=== PATIENT | male | born 1995 | race Caucasian/White ===

== ENCOUNTER 2021-03-22 15:54 | Emergency (ER) | payer OTHER ==
[2021-03-22] MEDS ORDERED: Ketorolac 60 MG/2 ML SDV IM ONE (16:26)
[2021-03-22 16:27] LABS: CHLORIDE,CL 103 mEq/L (98-106); SODIUM,NA 139 mEq/L (136-145)
[2021-03-22] MEDS ORDERED: Potassium Chloride 10 MEQ Tab.ER PO ONE (16:58)
--- NOTE | 2021-03-22 17:02 | EDM.PDOC ---
ED HPI GENERAL MEDICAL PROBLEM - General Chief Complaint: General Stated Complaint: chestpain Time Seen by Provider: 03/22/21 16:10 Source of Information: Reports: Patient History Limitations: Reports: No Limitations - History of Present Illness Onset: Unknown/Unsure Onset Date: 03/21/21 Duration: Intermittent Location: Reports: Chest (Left sided chest magdaleno is reproducible on palpation.) Quality: Reports: Ache Severity: Mild Improves with: Reports: None Worsens with: Reports: None Context: Reports: Activity, Other (snow shoveling) Associated Symptoms: Reports: No Other Symptoms Treatments [employer]: Reports: Other (see below) (none) ribs Pain Score (Numeric/FACES): 4 - Related Data Allergies Allergy/AdvReac Type Severity Reaction Status Date / Time No Known Allergies Allergy Verified 03/22/21 16:12 Home Meds: Home Meds . [No Known Home Meds] 03/22/21 [History] Past Medical History - Past Health History Medical/Surgical History: Denies Medical/Surgical History Social & Family History - Tobacco Use Tobacco Use Status *Q: Current Every Day Tobacco User Years of Tobacco use: 5 Packs/Tins Daily: 1 - Caffeine Use Caffeine Use: Reports: Soda - Recreational Drug Use Recreational Drug Use: No ED ROS GENERAL - Review of Systems Review Of Systems: See Below Constitutional: Reports: No Symptoms HEENT: Reports: No Symptoms Respiratory: Reports: No Symptoms Cardiovascular: Reports: Chest Pain Endocrine: Reports: No Symptoms GI/Abdominal: Reports: No Symptoms : Reports: No Symptoms Musculoskeletal: Reports: Other (left chest pain) Skin: Reports: No Symptoms Neurological: Reports: No Symptoms Psychiatric: Reports: No Symptoms Hematologic/Lymphatic: Reports: No Symptoms Immunologic: Reports: No Symptoms ED EXAM, GENERAL - Physical Exam Exam: See Below Exam Limited By: No Limitations General Appearance: Alert, No Apparent Distress Eye Exam: Bilateral Eye: Normal Inspection Ears: Normal External Exam Nose: Normal Inspection, Normal Mucosa, No Blood Throat/Mouth: Normal Inspection, Normal Lips, Normal Teeth, Normal Gums, Normal Oropharynx, Normal Voice, No Airway Compromise Head: Atraumatic, Normocephalic Neck: Normal Inspection, Supple, Non-Tender, Full Range of Motion Respiratory/Chest: No Respiratory Distress, Lungs Clear, Normal Breath Sounds, No Accessory Muscle Use, Chest Non-Tender, Other (pain reproducible on palpation of left ribs just under pectoral areas) Cardiovascular: Normal Peripheral Pulses, Regular Rate, Rhythm, No Edema GI/Abdominal: Normal Bowel Sounds, Soft, Non-Tender, No Distention Back Exam: Normal Inspection, Full Range of Motion Extremities: Normal Inspection, Normal Range of Motion, Non-Tender, Normal Capillary Refill Neurological: Alert, Oriented, Normal Cognition, Normal Gait, No Motor/Sensory Deficits Psychiatric: Normal Affect, Normal Mood Skin Exam: Warm, Dry, Intact, Normal Color, No Rash #1 Interpretation EKG Date: 03/22/21 Rhythm: NSR (sinus arrhythmia) Course - Vital Signs Last Recorded V/S: Last Vital Signs Temp 97.5 F 03/22/21 15:54 Pulse 74 03/22/21 15:54 Resp 16 03/22/21 15:54 BP 140/87 03/22/21 15:54 Pulse Ox 96 03/22/21 15:54 - Orders/Labs/Meds Orders: Active Orders 24 hr Category Date Time Status Telemetry Monitoring [Cardiac Monitoring] [RC] . Care 03/22/21 16:05 Active DIRECTED Labs: Laboratory Tests 03/22/21 03/22/21 03/22/21 Range/Units 16:10 16:10 16:10 WBC 6.7 (4.0-11.0) 10^3/uL RBC 5.63 (4.50-6.00) x10^6/uL Hgb 16.2 (14.0-18.0) g/dL Hct 46.5 (42.0-52.0) % MCV 82.6 L (83.0-97.0) fL MCH 28.8 (27.0-32.0) pg MCHC 34.8 (32.0-36.0) g/dL RDW Coeff of Eliceo 12.0 (11.0-15.0) % Plt Count 173 (150-400) 10^3/uL Immature Gran % (Auto) 0.3 (0.0-4.9) % Neut % (Auto) 60.6 (41-71) % Lymph % (Auto) 23.8 L (24-44) % [place] % (Auto) 11.5 H (0-10) % Eos % (Auto) 3.1 (0-6) % Baso % (Auto) 0.7 (0-1) % Neut # (Auto) 4.04 (1.80-8.00) x10^3/uL Lymph # (Auto) 1.59 (0.60-5.00) 10^3/uL [place] # (Auto) 0.77 (0.00-1.50) 10^3/uL Eos # (Auto) 0.21 (0.00-1.50) 10^3/uL Baso # (Auto) 0.05 (0.00-0.50) 10^3/uL Immature Gran # (Auto) 0.02 (0.00-0.49) 10^3/uL PT 11.7 (9.7-12.3) SEC INR 1.08 (0.92-1.18) Sodium 139 (136-145) mEq/L Potassium 3.3 L (3.5-5.0) mEq/L Chloride 103 (98-106) mEq/L Carbon Dioxide 27 (21-32) mmol/L BUN 11 (7-18) mg/dL Creatinine 1.2 (0.7-1.3) mg/dL Est Cr Clr Drug Dosing 107.51 mL/min Estimated GFR (MDRD) > 60 (>=60) mL/min Glucose 88 (75-99) mg/dL Calcium 8.9 (8.4-10.1) mg/dL Magnesium 1.9 (1.8-2.4) mg/dL Total Bilirubin 0.6 (0.0-1.0) mg/dL AST 31 (15-37) U/L ALT 70 (12-78) U/L Alkaline Phosphatase 68 (46-116) U/L Lactate Dehydrogenase 159 (100-190) U/L Creatine Kinase 136 (35-232) U/L Troponin I High Sens 4.7 (<=76) pg/mL Total Protein 7.9 (6.4-8.2) g/dL Albumin 4.5 (3.4-5.0) g/dL Lipase 104 (73-393) U/L Meds: Medications Discontinued Medications Generic Name Dose Route Start Last Admin Trade Name Freq PRN Reason Stop Dose Admin Acetaminophen 1,000 mg 03/22/21 17:10 03/22/21 17:19 Acetaminophen 500 Mg Tab PO 03/22/21 17:11 1,000 mg ONETIME ONE Administration Ketorolac Tromethamine 60 mg 03/22/21 16:26 03/22/21 16:35 Ketorolac 60 Mg/2 Ml Sdv IM 03/22/21 16:27 60 mg ONETIME ONE Administration Potassium Chloride 20 meq 03/23/21 16:58 Potassium Chloride 10 Meq Tab.Er PO 03/23/21 16:59 ONETIME ONE Potassium Chloride 20 meq 03/22/21 16:58 03/22/21 17:19 Potassium Chloride 10 Meq Tab.Er PO 03/22/21 16:59 20 meq ONETIME ONE Administration - Re-Assessments/Exams Free Text/Narrative Re-Assessment/Exam: 03/22/21 17:06 gave ketorolac IM and kcl 20 mEq po Free Text/Narrative Re-Assessment/Exam: 03/22/21 17:44 States feeling much better Departure - Departure Time of Disposition: 17:45 Disposition: Home, Self-Care 01 Condition: Good Clinical Impression: Costochondritis - Discharge Information Instructions: Costochondritis, [id number], Hypokalemia Referrals: PCP,None [Primary Care Provider] - Forms: ED Department Discharge Additional Instructions: Ibuprofen/Tylenol per label. Sports drinks, healthy diet. Avoid painful activity. Follow up with Primary Care Provider as needed. Sepsis Event Note (ED) - Evaluation Sepsis Screening Result: No Definite Risk - Focused Exam Vital Signs: Vital Signs Temp Pulse Resp BP Pulse Ox 03/22/21 15:54 97.5 F 74 16 140/87 96 - Problem List & Annotations (1) Costochondritis SNOMED Code(s): 10338730 Code(s): M94.0 - CHONDROCOSTAL JUNCTION SYNDROME [TIETZE] Status: Acute Current Visit: Yes - My Orders Last 24 Hours: My Active Orders 03/22/21 16:05 Telemetry Monitoring [Cardiac Monitoring] [RC] . DIRECTED - Assessment/Plan Last 24 Hours: My Active Orders 03/22/21 16:05 Telemetry Monitoring [Cardiac Monitoring] [RC] . DIRECTED
[2021-03-22] MEDS ORDERED: Acetaminophen 500 MG Tab PO ONE (17:10)
[2021-03-23] MEDS ORDERED: Potassium Chloride 10 MEQ Tab.ER PO ONE (16:58)
== END 2021-03-22 17:58 | disposition home or self-care (01) ==
LOC: CC.ED 15:54
DX: M94.0 Chondrocostal junction syndrome [Tietze] (principal); Z72.0 Tobacco use
CPT/HCPCS: 36415; 80053; 82550; 83615; 83690; 83735; 84484; 85025; 85610; 93005; 96372; 99285; A9270; J1885

== ENCOUNTER 2023-01-26 09:15 | Emergency (ER) | payer OTHER ==
[2023-01-26] MEDS ORDERED: fentaNYL 50 MCG/ML SDV IVPUSH ONE (09:24)
[2023-01-26] MEDS ORDERED: Sodium Chloride 0.9% 1,000 ML IV ONE (09:24)
[2023-01-26 09:40] LABS: BASOPHILS ABSOLUTE AUTO 0.03 10^3/uL (0.00-0.50); BASOPHILS PERCENT AUTO 0.2 % (0-1); EOSINOPHILS PERCENT AUTO 0.7 % (0-6); HEMATOCRIT 45.2 % (42.0-52.0); IMMATURE GRAN ABSOLUTE AUTO 0.06 10^3/uL (0.00-0.49); IMMATURE GRAN PERCENT AUTO 0.4 % (0.0-4.9); LYMPHOCYTES ABSOLUTE AUTO 1.45 10^3/uL (0.60-5.00); LYMPHOCYTES PERCENT AUTO 9.6 % (24-44); MEAN CORPUSCULAR HEMOGLOBIN 28.9 pg (27.0-32.0); MEAN CORPUSCULAR HGB CONC 35.4 g/dL (32.0-36.0); MEAN CORPUSCULAR VOLUME 81.6 fL (83.0-97.0); MONOCYTES ABSOLUTE AUTO 1.14 10^3/uL (0.00-1.50); MONOCYTES PERCENT AUTO 7.6 % (0-10); NEUTROPHILS ABSOLUTE AUTO 12.26 x10^3/uL (1.80-8.00); NEUTROPHILS PERCENT AUTO 81.5 % (41-71); PLATELET COUNT,PLT 180 10^3/uL (150-400); RED BLOOD CELL COUNT 5.54 x10^6/uL (4.50-6.00)
[2023-01-26 09:59] LABS: ALANINE AMINOTRANSFERASE,ALT 42 U/L (12-78); ALBUMIN 4.1 g/dL (3.4-5.0); ALKALINE PHOSPHATASE 63 U/L (46-116); ASPARTATE AMNIOTRANSFERASE,AST 26 U/L (15-37); BILIRUBIN TOTAL 0.5 mg/dL (0.0-1.0); BLOOD UREA NITROGEN,BUN 9 mg/dL (7-18); CALCIUM 9.4 mg/dL (8.4-10.1); CARBON DIOXIDE,CO2 29 mmol/L (21-32); CHLORIDE,CL 105 mEq/L (98-106); CREATININE 1.1 mg/dL (0.7-1.3); GLUCOSE RANDOM 104 mg/dL (75-99); MAGNESIUM 1.8 mg/dL (1.8-2.4); POTASSIUM,K 4.6 mEq/L (3.5-5.0); PROTEIN TOTAL,TP 7.5 g/dL (6.4-8.2); SODIUM,NA 141 mEq/L (136-145)
[2023-01-26 10:20] LABS: ESTIMATED GFR 93 mL/min (>=60); ETHANOL BLOOD MEDICAL < 3 mg/dL (0-3)
== END 2023-01-26 12:30 | disposition home or self-care (01) ==
LOC: CC.ED 09:15
DX: S80.11XA Contusion of right lower leg, initial encounter (principal); S20.212A Contusion of left front wall of thorax, initial encounter; V67.5XXA Driver of heavy transport vehicle injured in collision with fixed or stationary object in traffic accident, initial encounter; Y92.410 Unspecified street and highway as the place of occurrence of the external cause
CPT/HCPCS: 36415; 71101-LT; 73560-RT; 73590-RT; 80053; 80307; 83605; 83735; 84484; 85025; 93005; 93010; 99284; J3010; J7030

== ENCOUNTER 2023-02-04 23:55 | Emergency (ER) | payer OTHER ==
[2023-02-05] MEDS ORDERED: Ketorolac 30 MG/ML SDV IVPUSH ONE (00:25)
[2023-02-05 00:34] LABS: BASOPHILS ABSOLUTE AUTO 0.05 10^3/uL (0.00-0.50); BASOPHILS PERCENT AUTO 0.6 % (0-1); EOSINOPHILS ABSOLUTE AUTO 0.15 10^3/uL (0.00-1.50); EOSINOPHILS PERCENT AUTO 1.7 % (0-6); HEMATOCRIT 41.2 % (42.0-52.0); HEMOGLOBIN 14.6 g/dL (14.0-18.0); IMMATURE GRAN ABSOLUTE AUTO 0.03 10^3/uL (0.00-0.49); IMMATURE GRAN PERCENT AUTO 0.3 % (0.0-4.9); LYMPHOCYTES ABSOLUTE AUTO 1.78 10^3/uL (0.60-5.00); LYMPHOCYTES PERCENT AUTO 20.2 % (24-44); MEAN CORPUSCULAR HEMOGLOBIN 29.1 pg (27.0-32.0); MEAN CORPUSCULAR HGB CONC 35.4 g/dL (32.0-36.0); MEAN CORPUSCULAR VOLUME 82.2 fL (83.0-97.0); MONOCYTES ABSOLUTE AUTO 0.86 10^3/uL (0.00-1.50); MONOCYTES PERCENT AUTO 9.8 % (0-10); NEUTROPHILS ABSOLUTE AUTO 5.94 x10^3/uL (1.80-8.00); NEUTROPHILS PERCENT AUTO 67.4 % (41-71); PLATELET COUNT,PLT 212 10^3/uL (150-400); RED BLOOD CELL COUNT 5.01 x10^6/uL (4.50-6.00); WHITE BLOOD CELL COUNT,WBC 8.8 10^3/uL (4.0-11.0)
[2023-02-05 00:49] LABS: ALBUMIN 4.1 g/dL (3.4-5.0); BILIRUBIN TOTAL 0.9 mg/dL (0.0-1.0); C-REACTIVE PROTEIN 3.05 mg/dL (<=0.30); CREATININE 1.1 mg/dL (0.7-1.3); EST CRCL DRUG DOSING (CG) 115.2 mL/min; PROTEIN TOTAL,TP 8.2 g/dL (6.4-8.2)
== END 2023-02-05 03:00 ==
LOC: CC.ED 23:55
DX: M79.89 Other specified soft tissue disorders (principal); R79.89 Other specified abnormal findings of blood chemistry; Z87.891 Personal history of nicotine dependence
CPT/HCPCS: 36415; 80053; 82550; 85025; 85379; 86140; 96374; 99284; J1885